=== PATIENT | male | born 1965 | race Caucasian/White ===

== ENCOUNTER 2017-05-11 14:00 | Emergency (ER) | payer BC ==
[2017-05-11] MEDS ORDERED: Lidocaine 1% MPF* 2 ML VIAL INJ ONE (14:07)
[2017-05-11] MEDS ORDERED: Tetan/Diph/Pertus SYR(Tdap)* 0.5 ML SYR(BOOSTRIX) use SYR IM ONE (14:08)
--- NOTE | 2017-05-11 14:09 | ED ---
Laceration/Wound HPI - HPI Summary HPI Summary: 51 YEAR OLD WITH LACERATION ON RIGHT FOREARM. - History of Current Complaint Stated Complaint: RIGHT FORE ARM LACERATION Time Seen by Provider: 05/11/17 14:07 - Allergy/Home Medications Allergies/Adverse Reactions: Allergies Allergy/AdvReac Type Severity Reaction Status Date / Time Ciprofloxacin [From Cipro] Allergy Intermediate Muscle Ache Verified 05/11/17 14 :15 PMH/Surg Hx/FS Hx/Imm Hx Endocrine/Hematology History: Denies: Hx Diabetes Cardiovascular History: Denies: Hx Hypertension Respiratory History: Denies: Hx Asthma - Surgical History Surgery Procedure, Year, and Place: fistula repair. inguinal hernia repair/ testicle removed as an - Social History Alcohol Use: Daily Alcohol Amount: glass a wine Substance Use Type: Reports: None Smoking Status (MU): Never Smoked Tobacco Review of Systems Positive: Other - RIGHT FOREARM LACERATION All Other Systems Reviewed And Are Negative: Yes Physical Exam Triage Information Reviewed: Yes Vital Signs Reviewed: Yes Appearance: Positive: Signs of Trauma Skin: Positive: Tender Procedures - Laceration/Wound Repair 1 Location: upper extremity - RIGHT FOREARM Description: Linear Anesthesia: Local, 1.0%, Lido Length, Depth and Shape: 3 CM, .5 CM, LINEAR Betadine Prep?: Yes - HIBICLENS THEN 3 COATS OF BETADINE Laceration/Wound Explored: clean, no foreign body removed Closure: Single Layer Suture Type: Nylon Number of Sutures: 4 Layer Closure?: Yes - 4 INTERRUPTED SUTURES Sterile Dressing Applied?: Yes Laceration Repair Course/Dx - Differential Dx Differental Diagnoses: Laceration - Clinical Impression Provider Diagnoses: Laceration of forearm Discharge - Discharge Plan Condition: Stable Disposition: HOME Prescriptions: Sulfamethox/Trimethoprim DS* [Bactrim DS 800/160 TAB*] 1 tab PO BID #14 tab Patient Education Materials: Laceration (ED) Referrals: Parker Glass MD [Primary Care Provider] -
[2017-05-11 14:15] VITALS: BP 115/62
== END 2017-05-11 15:19 | disposition home or self-care (01) ==
LOC: UCCORT 14:00
DX: S51.811A Laceration without foreign body of right forearm, initial encounter (principal); X58.XXXA Exposure to other specified factors, initial encounter
CPT/HCPCS: 12002; 90471; 90715; 99212; G0463

== ENCOUNTER 2018-04-05 08:47 | Emergency (ER) | payer BC ==
[2018-04-05 09:17] VITALS: BP 160/87
--- NOTE | 2018-04-05 10:47 | UC ---
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 - History Of Current Complaint Chief Complaint: UCGeneralIllness Stated Complaint: LEFT RING FINGER COMPLAINT Time Seen by Provider: 04/05/18 09:18 Hx Obtained From: Patient Mechanism Of Injury: no injury , ring stock in left ring finger Onset/Duration: Gradual Onset, Lasting Days - 2, Still Present Severity Initially: Moderate Severity Currently: Moderate Pain Intensity: 0 Pain Scale Used: 0-10 Numeric Character Of Pain: Aching - left ring finger Aggravating Factor(s): Movement Alleviating Factor(s): Nothing Associated Signs And Symptoms: Positive: Swelling - left ring finger, Other - Allergies/Home Medications Allergies/Adverse Reactions: Allergies Allergy/AdvReac Type Severity Reaction Status Date / Time ciprofloxacin [From Cipro] Allergy Muscle Ache Verified 04/05/18 09:10 Home Medications: Home Medications Ibuprofen TAB* [Advil TAB*] 200 mg PO Q6H PRN 04/05/18 [History Confirmed ] PMH/Surg Hx/FS Hx/Imm Hx Previously Healthy: Yes - Surgical History Surgical History: Yes Surgery Procedure, Year, and Place: fistula repair. inguinal hernia repair/ testicle removed as an infant - Family History Known Family History: Negative: Diabetes - Social History Alcohol Use: Daily Alcohol Amount: glass a wine Substance Use Type: None Smoking Status (MU): Never Smoked Tobacco - Immunization History Most Recent Influenza Vaccination: [id number] Review of Systems Constitutional: Negative Eyes: Negative ENT: Negative Respiratory: Negative Cardiovascular: Negative Is Patient Immunocompromised?: No All Other Systems Reviewed And Are Negative: Yes Physical Exam Triage Information Reviewed: Yes Appearance: Well-Appearing, No Pain Distress, Well-Nourished Vital Signs: Initial Vital Signs Temp 98.3 F 04/05/18 09:12 Pulse 64 04/05/18 09:12 Resp 18 04/05/18 09:12 BP 160/87 04/05/18 09:12 Pulse Ox 100 04/05/18 09:12 Eye Exam: Normal ENT: Positive: Normal ENT inspection, Hearing grossly normal, Pharynx normal Neck: Positive: Supple, Nontender Respiratory: Positive: Chest non-tender, Lungs clear, Normal breath sounds Cardiovascular: Positive: RRR, No Murmur, Pulses Normal Musculoskeletal: Positive: Edema @ - left ring finger Skin: Positive: Other - wedding ring stock on his left ring finger ring was removed form the finger using a sting and lubrication Hand/Wrist Course/Dx - Differential Dx/Diagnosis Provider Diagnoses: left ring finger pain. ring stuck on finger Discharge - Sign-Out/Discharge Documenting (check all that apply): Discharge/Admit/Transfer - Discharge Plan Condition: Stable Disposition: HOME Patient Education Materials: Swollen Joint (ED) Referrals: Parker Glass MD [Primary Care Provider] - If Needed Additional Instructions: use ice for 15 min 3 x per day for the swelling , may take ibuprofen as needed for pain follow up as needed - Billing Disposition and Condition Condition: STABLE Disposition: HOME
== END 2018-04-05 09:37 | disposition home or self-care (01) ==
LOC: UCCORT 08:47
DX: M79.645 Pain in left finger(s) (principal); Z88.3 Allergy status to other anti-infective agents
CPT/HCPCS: 99211; G0463